=== PATIENT | female | born 1960 | race Caucasian/White ===

== ENCOUNTER → 2017-04-17 | Day surgery (SDC) | payer OTHER ==
[~2017-04-17] MED LIST: PROPOFOL 500 MG/50 ML BTL IV ONE
--- NOTE | 2017-04-17 10:22 | GIPROC ---
[facility] [address] [facility], [address] COLONOSCOPY PROCEDURE REPORT EXAM DATE: 04/17/2017 PATIENT NAME: Nya Zamarripa MR #: [id number] BIRTHDATE: 1960 ENDOSCOPIST: Adri Waldrop MD ORDER #: [id number] SERVICE ESTABLISHMENT ATTENDANT: Roc Gilmore RN STATUS: outpatient INDICATIONS: The patient is a 57 yr old female here for a colonoscopy due to colostomy reversal PROCEDURE PERFORMED: Diagnostic colonoscopy via stoma MEDICATIONS: None and Per Anesthesia. PREP QUALITY: good ESTIMATED BLOOD LOSS: None CONSENT: The patient understands the risks and benefits of the procedure and understands that these risks include, but are not limited to: sedation, allergic reaction, infection, perforation and/or bleeding. Alternative means of evaluation and treatment include, among others: physical exam, x-rays, and/or surgical intervention. The patient elects to proceed with this endoscopic procedure. medical equipment was checked for proper function. Hand hygiene and appropriate measures for infection prevention was taken. After the risks, benefits and alternatives of the procedure were thoroughly explained, Informed consent was verified, confirmed and timeout was successfully executed by the treatment team. A digital exam The EC-[id number] ([id number]) and EG-[id number] ([id number]) endoscope was introduced through the sigmoid colostomy and advanced to the surgical anastomosis. The instrument was then slowly withdrawn as the colon was fully examined. COLON FINDINGS: Very tight colostomy site, Unable to advance into the colon with neither the pedi scope nor the upper endoscope. visualized portion of the colon normal. The scope was then completely withdrawn from the patient and the procedure terminated. ADVERSE EVENTS: There were no complications. IMPRESSIONS: Very tight colostomy site, Unable to advance into the colon with neither the pedi scope nor the upper endoscope. visualized portion of the colon normal RECOMMENDATIONS: Xray for CT colonography RECALL: Return 1 year Colonoscopy Adri Waldrop MD eSigned: Adri Waldrop MD 04/17/2017 10:22 AM cc: [facility] Lyle [facility] and Idris Jamison M.D.
--- NOTE | 2017-04-17 10:24 | GIPROC ---
[facility] [address] [facility], [address] FLEXIBLE SIGMOIDOSCOPY PROCEDURE REPORT EXAM DATE: 04/17/2017 PATIENT NAME: Nya Zamarripa MR #: [id number] BIRTHDATE: 1960 ORDER #: [id number] ATTENDING: Adri Waldrop MD ICE GUARD SKATING RINK: Roc Gilmore RN STATUS: outpatient INDICATIONS: The patient is a 57 yr old female here for a flexible sigmoidoscopy due to average risk patient for colon cancer PROCEDURE PERFORMED: Flexible Sigmoidoscopy with biopsy MEDICATIONS: None and Per Anesthesia. ESTIMATED BLOOD LOSS: None CONSENT: The patient understands the risks and benefits of the procedure and understands that these risks include, but are not limited to: sedation, allergic reaction, infection, perforation and/or bleeding. Alternative means of evaluation and treatment include, among others: physical exam, x-rays, and/or surgical intervention. The patient elects to proceed with this endoscopic procedure. medical equipment was checked for proper function. Hand hygiene and appropriate measures for infection prevention was taken. After the risks, benefits and alternatives of the procedure were thoroughly explained, Informed consent was verified, confirmed and timeout was successfully executed by the treatment team. A digital rectal exam revealed external hemorrhoids The endoscope was introduced through the anus and advanced to the sigmoid colon. The prep was fair. The instrument was then slowly withdrawn as the colon was fully examined. COLON FINDINGS: There was moderate diverticulosis noted in the sigmoid colon with associated inflammatory changes. Biopsies done. Retroflexed views revealed internal hemorrhoid The scope was then completely withdrawn from the patient and the procedure terminated. ADVERSE EVENTS: There were no complications. IMPRESSIONS: 1. There was moderate diverticulosis noted in the sigmoid colon 2. Biopsies done 3. Retroflexed views revealed internal hemorrhoid 4. Revealed external hemorrhoids RECOMMENDATIONS: 1. Await biopsy results 2. Yearly hemoccult RECALL: NONE Adri Waldrop MD eSigned: Adri Waldrop MD 04/17/2017 10:24 AM cc: [facility]uba Lyle [facility] and Idris Jamison M.D.
== END | disposition home or self-care (01) ==
LOC: ESDC 08:25
PROVIDERS: ATTEND Internal Medicine Gastroenterology
DX: Z12.11 Encounter for screening for malignant neoplasm of colon (principal); K64.4 Residual hemorrhoidal skin tags; K57.90 Diverticulosis of intestine, part unspecified, without perforation or abscess without bleeding; K64.8 Other hemorrhoids
CPT/HCPCS: 88305

== ENCOUNTER → 2017-06-07 | Outpatient (CLI) | payer OTHER ==
[~2017-06-07] MED LIST changes: +DIATRIZOATE MEGLUM/DIATRIZOATE SOD 120 ML BTL (for RAD DIAG) J-TUBE ONE; -PROPOFOL 500 MG/50 ML BTL IV ONE
--- NOTE | 2017-06-07 11:13 | RADRPT ---
EXAM DATE/TIME: 06/07/2017 08:50 [facility] COMPARISON: No previous studies available for comparison. INDICATIONS : Colostomy. Incomplete colonoscopy. FLUORO TIME: 2.2 minutes IMAGE COUNT: 19 CONTRAST: 1. [facility] MEDICAL HISTORY : Carcinoma, colon. Chemotherapy until January 2017 SURGICAL HISTORY : Colostomy. Colon surgery 03/2016. ENCOUNTER: Initial ACUITY: >1 year PAIN SCORE: 0/10 LOCATION: Bilateral Colon. FINDINGS: Preliminary film is unremarkable. Under fluoroscopic guidance a Gastrografin enema was performed with free flow of contrast to the ceca l tip. There is a persistent 1 cm polypoid filling defect in the distal transverse colon that I could not m timo disappear. This could be polyp or adherent stool. No other abnormality is appreciated. Correla tion with incomplete colonoscopy is suggested. Post evacuation radiographs are unremarkable. CONCLUSION: Abnormal Gastrografin enema as described above.. Pb Sanchez MD FACR on June 07, 2017 at 11:08 Board Certified Radiologist. This report was verified electronically.
== END ==
LOC: HRAD 08:29
PROVIDERS: ATTEND Internal Medicine Gastroenterology
DX: C18.9 Malignant neoplasm of colon, unspecified (principal); Z71.89 Other specified counseling
CPT/HCPCS: 74270; Q9963

== ENCOUNTER → 2017-06-26 | Outpatient (CLI) | payer OTHER ==
[~2017-06-26] MED LIST changes: -DIATRIZOATE MEGLUM/DIATRIZOATE SOD 120 ML BTL (for RAD DIAG) J-TUBE ONE; +DIATRIZOATE MEGLUM/DIATRIZOATE SOD 120 ML BTL (for RAD DIAG) RECTAL ONE
--- NOTE | 2017-06-26 13:06 | RADRPT ---
EXAM DATE/TIME: 06/26/2017 11:10 [facility] COMPARISON: GASTROGRAFIN ENEMA, June 07, 2017, 8:50. INDICATIONS : Colon Cancer. FLUORO TIME: 2.2 minutes IMAGE COUNT: 15 CONTRAST: 1. [facility] MEDICAL HISTORY : Diverticulitis. colon cancer SURGICAL HISTORY : colostomy, part of colon removed from diverticulitis ENCOUNTER: Initial ACUITY: 1 day PAIN SCORE: 0/10 LOCATION: Bilateral abdomen FINDINGS: Preliminary film is unremarkable. Under fluoroscopic guidance a Gastrografin enema was performed from the rectum. 3 short segment rect al pouch is evident. An attempt was made to re\re instilled Gastrografin from the colostomy hoe ever the colon is unpreppe d Post evacuation radiographs are unremarkable. CONCLUSION: There is very short sigmoid stump. Pb Sanchez MD FACR on June 26, 2017 at 13:03 Board Certified Radiologist. This report was verified electronically.
== END ==
LOC: HRAD 10:34
PROVIDERS: ATTEND Surgery
DX: C18.9 Malignant neoplasm of colon, unspecified (principal); Z93.3 Colostomy status
CPT/HCPCS: 74270; Q9963